=== PATIENT | female | born 1990 ===

== ENCOUNTER 2020-11-22 08:31 | Emergency (ER) | payer OTHER, SELFPAY ==
[2020-11-22 08:31] VITALS: BP 131/93; PULSE 114; RESP 14; TEMP 36.6; O2SAT 100; BMI 25.7
--- NOTE | 2020-11-22 08:39 | ED.EAR ---
HPI - Ear Problem General Chief complaint: Ear Stated complaint: ear ache, both ears Time Seen by Provider: 11/22/20 08:32 Source: patient Mode of arrival: Ambulatory Limitations: no limitations History of Present Illness HPI Narrative: 30F nonsmoker without medical problems presents with a few days of bilateral ear fullness. She has taken the occasional anti-inflammatory which briefly helps with her discomfort and then it returns. She denies any fever or chills. She denies any drainage or change in hearing. She denies any runny nose, sore throat or cough. She denies any trauma. She last flew about 10 days ago. She has not tried any [id number]-[id number] medications otherwise such as antihistamines or decongestants. She denies any other medical advice. MD Complaint: ear pain Location: bilateral Duration: constant Severity: mild Relieving factors: NDAIDs Exacerbating factors: nothing Context: recent plane flight Discharge from ear: no Treatment prior to arrival: oral analgesic Related Data Allergies Allergy/AdvReac Type Severity Reaction Status Date / Time No Known Drug Allergies Allergy Verified 11/22/20 08:36 Review of Systems Constitutional Constitutional: Denies fever(s) Eyes Eyes: Denies blurry vision, Denies change in vision and Denies eye discharge ENT Ears, Nose, Mouth, and Throat: Denies otalgia, Denies sinus pain, Denies sinus pressure and Denies sore throat Cardiovascular Cardiovascular: Denies chest pain and Denies dyspnea Respiratory Respiratory: Denies cough and Denies dyspnea Gastrointestinal Gastrointestinal: Denies abdominal pain, Denies nausea and Denies vomiting Genitourinary Genitourinary: Denies dysuria Genitourinary: Denies dysuria Musculoskeletal Musculoskeletal: Denies arthralgias Integumentary/Breasts Skin/Breast: Denies rash Patient History Social History Smoking Status: Unknown if ever smoked Smoking Status: Unknown if ever smoked alcohol intake frequency: holidays/special occasions only Substance Use Type: does not use Exam Narrative Exam Narrative: GEN: AOx3 and in mild distress EYES: Pupils are equal, round, and reactive to light and accommodation. Extraoccular muscles are intact bilaterally. There is no subconjunctival hemorrhage or exudate. ENT: clear effusion B/L. TMs flat, no erythema. Normal landmarks. No TM perforation. No pharyngeal erythema. No tender adenopathy CHEST: Lungs are clear to auscultation bilaterally and free of wheezes, rales, or rhonchi. Heart rate is regular rhythm, there are no murmurs, clicks, rubs, or gallops. There is no chest wall tenderness. ABD: Abdomen is soft and nontender. There is no guarding or rebound. Bowel sounds are normal in all 4 quadrants. There is no mass or organomegaly. EXT: Full painless ROM of all extremities with no loss of sensation or strength. SKIN: Warm, pink, and dry. No erythema or rash Initial Vital Signs Initial Vital Signs: Vital Signs Temperature 97.8 F 11/22/20 08:31 Pulse Rate 114 H 11/22/20 08:31 Respiratory Rate 14 11/22/20 08:31 Blood Pressure 131/93 H 11/22/20 08:31 Pulse Oximetry 100 11/22/20 08:31 Course Vital Signs Vital signs: Vital Signs - 8 hr 11/22/20 08:31 Temperature 97.8 F Pulse Rate 114 H Respiratory Rate 14 Blood Pressure 131/93 H Pulse Oximetry 100 Discharge Plan Departure Patient Disposition: Home Clinical Impression: Earache Instructions: DI for Ear Pain-Adult Activity Restrictions/Additional Instructions: *You have been diagnosed with [bilateral serous otitis media, no sign of infection that would require antibiotics] *What to do: *Take medications as directed: Gozi-[id number] antihistamine and decongestant combo such as Tanna D *Follow up with your primary care provider in 2-3 days, call for an appointment. Let them know you were seen in the Emergency Department and that we ask that you be seen in follow up *Return to ER if you should have any new, worsening or concerning symptoms
--- NOTE | 2020-11-22 08:42 | PC.NURSE ---
Reports plane travel 12 days ago. Denies fever or cough. Reports minimal relief with pain medications at home.
== END 2020-11-22 08:42 | disposition home or self-care (01) ==
PROVIDERS: Emergency Provider Emergency Medicine
DX: H92.03 Otalgia, bilateral (principal)
CPT/HCPCS: 99281

== ENCOUNTER 2022-04-18 09:58 | Emergency (ER) | payer OTHER, SELFPAY ==
[2022-04-18 10:00] VITALS: BP 112/74; PULSE 95; RESP 18; TEMP 37.4; O2SAT 99; BMI 21.9
[2022-04-18 10:41] VITALS: PULSE 92; O2SAT 100
[2022-04-18 10:42] VITALS: BP 111/67; PULSE 90; O2SAT 99
[2022-04-18 11:00] VITALS: PULSE 75; O2SAT 100
[2022-04-18 11:19] LABS: COVID19 -Nasal RAPID POSITIVE (Negative)
[2022-04-18 11:30] VITALS: PULSE 74; O2SAT 100
--- NOTE | 2022-04-18 11:54 | ED_ITS ---
HPI - URI/Sore Throat <PARKER Vance - Last Filed: 04/18/22 12:15> General Chief Complaint: Upper Respiratory Symptoms Stated Complaint: SORE THROAT 1 WEEK Time Seen by Provider: 04/18/22 11:52 Source: patient Mode of arrival: Ambulatory History of Present Illness HPI Narrative: 31-year-old nonsmoker female presents to the emergency department with complaints of sore throat x1. Patient has been using cool fluids and gargling with warm salt water with minimal to no improvement. Patient denies any exposure to any COVID positive family or friends. Patient reports that she is able to swallow, but is painful. No significant medical history. Related Data Allergies Allergy/AdvReac Type Severity Reaction Status Date / Time No Known Drug Allergies Allergy Verified 11/22/20 08:36 Review of Systems <PARKER Vance - Last Filed: 04/18/22 12:15> Review of Systems Narrative: Narrative: GENERAL: Denies chills, fatigue, fever, sweats. HEENT: Denies sinus pain, ear pain, dizziness. RESPIRATORY: Denies dyspnea, cough, wheezing, sputum. CARDIOVASCULAR: Denies chest pain, palpitations, edema. GASTROINTESTINAL: Denies nausea, vomiting, abdominal pain, diarrhea, constipation. : Denies dysuria, frequency, incontinence, hematuria, urinary retention, flank pain. MUSCULOSKELETAL: Denies weakness, joint pain, or bony pain. SKIN: Denies rash, skin lesions, or pruritis. NEUROLOGIC: Denies weakness, dizziness, numbness. PSYCHIATRIC: No concerning psychosocial issues. Patient History <PARKER Vance - Last Filed: 04/18/22 12:15> Social History Smoking Status: Never smoker Smoking Status: Never smoker alcohol intake frequency: holidays/special occasions only Substance Use Type: does not use Exam <PARKER Vance - Last Filed: 04/18/22 12:15> Narrative Exam Narrative: Exam Narrative: GENERAL: This is a well-nourished, well-developed patient, in no acute distress HEAD: Atraumatic. Normocephalic. EYES: Pupils equal round and reactive. Extraocular motions intact. No injection or drainage. ENT: Nose without bleeding, purulent drainage. Airway patent. Throat appears normal. NECK: Trachea midline. No JVD or lymphadenopathy. Supple and nontender. CARDIOVASCULAR: Regular rate and rhythm, peripheral pulses intact, cap refill <2 sec. RESPIRATORY: Breath sounds equal and clear bilaterally. No wheezes, rales, or rhonchi. No cough. No increased respiratory effort. No accessory muscle use. GASTROINTESTINAL: Abdomen soft, non-tender, nondistended without guarding or rebound. No suprapubic pain. No hepato-splenomegaly, or palpable masses. EXTREMITIES: Normal range of motion, no clubbing or edema. Neurovascularly intact. NEURO: A&O x 3. SKIN: Warm, dry, no rashes or lesions noted. Initial Vital Signs Initial Vital Signs: Vital Signs Temperature 99.3 F 04/18/22 10:00 Pulse Rate 95 H 04/18/22 10:00 Respiratory Rate 18 04/18/22 10:00 Blood Pressure 112/74 04/18/22 10:00 Pulse Oximetry 99 04/18/22 10:00 Oxygen Delivery Method 04/18/22 10:00 Reviewed <Mehreen Wallis DO - Last Filed: 04/20/22 13:23> Initial Vital Signs Initial Vital Signs: Vital Signs Temperature 99.3 F 04/18/22 10:00 Pulse Rate 95 H 04/18/22 10:00 Respiratory Rate 18 04/18/22 10:00 Blood Pressure 112/74 04/18/22 10:00 Pulse Oximetry 99 04/18/22 10:00 Oxygen Delivery Method 04/18/22 10:00 Course <PARKER Vance - Last Filed: 04/18/22 12:15> Orders Ordered: ED Orders 04/18/22 10:14 COVID19 -Nasal RAPID/Pre-Proc Stat Vital Signs Vital signs: Vital Signs - 8 hr 04/18/22 10:00 Temperature 99.3 F Pulse Rate 95 H Respiratory Rate 18 Blood Pressure 112/74 Pulse Oximetry 99 Oxygen Delivery Method Room Air <Mehreen Wallis DO - Last Filed: 04/20/22 13:23> Orders Ordered: ED Orders 04/18/22 10:14 COVID19 -Nasal RAPID/Pre-Proc Stat Vital Signs Vital signs: Vital Signs - 8 hr 04/18/22 10:00 Temperature 99.3 F Pulse Rate 95 H Respiratory Rate 18 Blood Pressure 112/74 Pulse Oximetry 99 Oxygen Delivery Method Room Air MDM - URI/Sore Throat <PARKER Vance - Last Filed: 04/18/22 12:15> Differential Diagnosis Differential diagnosis: Likely other (Covid-19); Unlikely sinusitis (or strep pharyngitis) Lab Data Labs: Lab Results 04/18/22 Range/Units 10:14 SARS-CoV-2 (PCR) Positive H (Negative) Point of Care Testing Rapid Strep A Negative MDM Narrative Medical decision making narrative: 31-year-old nonsmoking female presents to the emergency department with sore throat x1 week. Rapid strep test was negative. COVID test was positive. Patient with no significant medical history nor immunocompromised and therefore will treat symptomatically. Recommended cool fluids, warm water or tea with honey and lemon, Tylenol and ibuprofen as needed for discomfort. Discussed isolation precautions. Work note provided. Patient was agreeable with course of action. <Mehreen Wallis DO - Last Filed: 04/20/22 13:23> Lab Data Labs: Lab Results 04/18/22 Range/Units 10:14 SARS-CoV-2 (PCR) Positive H (Negative) Point of Care Testing Rapid Strep A Negative Discharge Plan Departure Patient Disposition: Home Clinical Impression: COVID-19 Instructions: DI for COVID-19 (Suspected or Confirmed ) Activity Restrictions/Additional Instructions: You were evaluated in the emergency department (ED) with symptoms concerning for COVID-19. While the diagnosis may feel scary, most cases resolve on their own without hospitalization. Certain high risk people are treated with medications to reduce their risk of serious symptoms. At this time, we feel that you are safe to go home. Steps to take at home to care for yourself: ? Get lots of rest and stay hydrated by drinking plenty of fluids. ? You can take acetaminophen (eg, Tylenol) or ibuprofen (eg, Advil, Motrin) for fevers or body aches. ? If you have questions, call your primary care doctor, contact your local health department, or visit the CDC?s website at gov/coronavirus. ? Speak with your primary care doctor within two weeks to discuss a plan to follow up. How to avoid spreading the virus to others: ? Stay at home, except if seeking medical care. ? Cover your coughs (with a tissue or in your elbow) and avoid touching your face unnecessarily. ? Wash your hands often (using soap and water for 20 seconds) to decrease your risk of infecting others. ? Try to avoid close contact with others in your home, including pets. If possible, use a different bathroom, and sleep in a separate room. If you must be near others, be sure everyone wears a face mask and wash your hands before interacting with them. ? If a test was sent and is positive, your local health department may contact you. Follow their directions about when to go back to work or school. ? If you were not tested, you may stop quarantine 10 days after the start of your symptoms, as long as your fever has been completely gone (without using medications) for at least 24 hours and your other symptoms are improving. ? Vaccination against COVID-19 can reduce your risk of reinfection. If you tested negative for COVID-19, you may get the vaccine as soon as possible. If you tested positive for COVID-19, you should still get a vaccine once allowed by your health department. If you or those around you are concerned about COVID-19, call your primary care doctor for advice about steps to take. Your health system may have specific locations for testing if you are not extremely sick. This lowers the risk that you could catch a virus or pass it on in the ED waiting room. Speak to your doctor or come back to the ED for new or worsening symptoms, such as severe headache, confusion, chest pain, difficulty breathing, or vomiting to the point that you cannot drink fluids. Review medication inserts for side effects and call the ED if you have any questions about the medications or care you received. *What to do: *Please continue to take your regular medications as directed. [ ] New medication prescriptions sent to your pharmacy: [ ] [ ] New medication written as a paper prescription [x ] No new medications given *Please follow up with your primary care provider in 2-3 days, call for an appointment. Let them know you were seen in the Emergency Department and that we ask that you be seen in follow up. We will electronically transmit a record of today's note if your PCP is in our system *If you do not have a primary care provider please contact the [facility] Resource line at [phone]. They will ask some questions about your medical history and help get you set up with a doctor in the community. ? Return to ER if you should have any new, worsening or concerning symptoms, such as worsening pain, severe headache, confusion, chest pain, difficulty breathing, fever greater than 101 F, shaking chills, persistent vomiting to the point that you cannot drink fluids, or other new or worsening symptoms. Stand Alone Forms: Work Release Note Visit Report Forms: Patient Portal/API <Mehreen Wallis DO - Last Filed: 04/20/22 13:23> Cosign ED Attending Cosignature Attestation: I was immediately available in the department for consultation. Documentation has been reviewed.
[2022-04-18 12:00] VITALS: PULSE 109; O2SAT 99
== END 2022-04-18 12:17 | disposition home or self-care (01) ==
PROVIDERS: Emergency Medicine; Emergency Provider Registered Nurse
DX: U07.1 COVID-19 (principal)
CPT/HCPCS: 87635; 87880; 99281; 99282; C9803